=== PATIENT | female | born 2000 | race Caucasian/White ===

== ENCOUNTER 2020-02-13 17:55 | Emergency (ER) | payer SELFPAY ==
[~2020-02-13] VITALS: Ht 162.6 cm; Wt 115.9 kg
[2020-02-13 18:09] VITALS: TEMP 98.4
[2020-02-13 18:33] LABS: BASO % 0.4 % (0.0-2.0); EOS # 0.2 (0.0-0.7); EOS % 2.6 % (0-4.0); GRAN # 4.1 (1.4-6.5); HEMATOCRIT 42.3 % (35.0-45.0); HEMOGLOBIN 14.4 g/dl (12.0-15.0); LYMPH # 2.6 (1.2-3.4); LYMPH % 33.4 % (20.0-51.0); MEAN CELL VOLUME 81 fl (80.0-95.0); MEAN CORPUSCULAR HEMOGLOBIN 27 pg (26.0-32.0); MEAN CORPUSCULAR HGB CONC 34 g/dl (33.0-37.0); MEAN PLATELET VOLUME 9.3 fl (7.4-10.4); MONO # 0.8 (0.1-0.6); MONO % 10.3 % (1.7-9.3); PLATELET COUNT 276 K/mm3 (130-400); RED BLOOD COUNT 5.25 M/mm3 (4.10-5.30); REDCELL DISTRIBUTION WIDTH-CV 12.1 % (11.5-14.5)
[2020-02-13 18:46] LABS: ALBUMIN 4.3 gm/dL (3.5-5.0); BILIRUBIN,TOTAL 0.5 mg/dL (0.0-1.0); C-REACTIVE PROTEIN 3.4 mg/dL (0.0-0.9); CALCIUM 9.5 mg/dL (8.4-10.2); CREATININE, serum 0.69 (0.52-1.25); POTASSIUM 3.8 mmol/L (3.4-5.0)
[2020-02-13] MEDS ORDERED: PREDNISONE10 MG PO (20:27)
[2020-02-13] MEDS ORDERED: CLEOCIN HCL300 MG PO (20:27)
[2020-02-13 21:18] VITALS: BP 120/60; PULSE 88
== END 2020-02-13 21:18 | disposition home or self-care (01) ==
LOC: COL.ER 17:55
PROVIDERS: Nurse Practitioner
DX: J35.1 Hypertrophy of tonsils (principal)
CPT/HCPCS: J1100; J1170; J1885; J2405; J7030

== ENCOUNTER 2020-08-24 19:43 | Emergency (ER) | payer OTHER ==
[~2020-08-24] VITALS: Ht 162.6 cm; Wt 104.5 kg
[~2020-08-24 19:43] MED LIST: CLEOCIN HCL300 MG PO; PREDNISONE10 MG PO
[2020-08-24 20:03] VITALS: TEMP 97.6
[2020-08-24 20:56] LABS: ALBUMIN 4.5 gm/dL (3.5-5.0); BILIRUBIN,TOTAL 0.2 mg/dL (0.0-1.0); CALCIUM 9.7 mg/dL (8.4-10.2); CREATININE, serum 0.67 (0.52-1.25); POTASSIUM 3.8 mmol/L (3.4-5.0); TOTAL PROTEIN 8.9 gm/dL (6.4-8.2)
[2020-08-24 20:59] LABS: BASO % 0.4 % (0.0-2.0); EOS # 0.2 (0.0-0.7); EOS % 1.8 % (0-4.0); GRAN # 6.9 (1.4-6.5); GRAN % 66.5 % (42.2-75.2); HEMOGLOBIN 14.2 g/dl (12.0-15.0); LYMPH # 2.6 (1.2-3.4); LYMPH % 24.6 % (20.0-51.0); MEAN CELL VOLUME 83 fl (80.0-95.0); MEAN CORPUSCULAR HEMOGLOBIN 28 pg (26.0-32.0); MEAN CORPUSCULAR HGB CONC 33 g/dl (33.0-37.0); MEAN PLATELET VOLUME 10.3 fl (7.4-10.4); MONO # 0.7 (0.1-0.6); MONO % 6.4 % (1.7-9.3); PLATELET COUNT 308 K/mm3 (130-400); RED BLOOD COUNT 5.17 M/mm3 (4.10-5.30); REDCELL DISTRIBUTION WIDTH-CV 13.1 % (11.5-14.5)
[2020-08-24] MEDS ORDERED: ZOFRAN ODT4 MG PO (21:48)
[2020-08-24] MEDS ORDERED: NORCO 325 MG-51 TAB PO (21:48)
[2020-08-24 22:10] VITALS: BP 127/74; PULSE 94
== END 2020-08-24 22:10 | disposition home or self-care (01) ==
LOC: COL.ER 19:43
PROVIDERS: Emergency Medicine
DX: R10.11 Right upper quadrant pain (principal); R11.2 Nausea with vomiting, unspecified; R55 Syncope and collapse; Z79.52 Long term (current) use of systemic steroids
CPT/HCPCS: J2270; J2405; J7030

== ENCOUNTER 2020-08-26 21:17 | Emergency (ER) | payer OTHER ==
[~2020-08-26] VITALS: Ht 162.6 cm; Wt 104.5 kg
[~2020-08-26 21:17] MED LIST changes: +NORCO 325 MG-51 TAB PO; +ZOFRAN ODT4 MG PO
[2020-08-26 22:10] LABS: COLLECTION METHOD CLEAN CATCH
[2020-08-26 22:13] LABS: BASO % 0.5 % (0.0-2.0); EOS # 0.2 (0.0-0.7); EOS % 3.2 % (0-4.0); GRAN # 3.1 (1.4-6.5); GRAN % 50.9 % (42.2-75.2); HEMATOCRIT 39.2 % (35.0-45.0); LYMPH # 2.3 (1.2-3.4); LYMPH % 37.6 % (20.0-51.0); MEAN CELL VOLUME 83 fl (80.0-95.0); MEAN CORPUSCULAR HEMOGLOBIN 28 pg (26.0-32.0); MEAN CORPUSCULAR HGB CONC 33 g/dl (33.0-37.0); MEAN PLATELET VOLUME 9.9 fl (7.4-10.4); MONO # 0.5 (0.1-0.6); MONO % 7.6 % (1.7-9.3); PLATELET COUNT 279 K/mm3 (130-400); RED BLOOD COUNT 4.72 M/mm3 (4.10-5.30); REDCELL DISTRIBUTION WIDTH-CV 12.8 % (11.5-14.5)
[2020-08-26 22:21] LABS: MUCOUS Present /lpf; PH 7 (5-8); URINE APPEARANCE Cloudy; URINE BACTERIA Moderate /hpf; URINE BILIRUBIN Negative (NEGATIVE); URINE BLOOD Negative (NEGATIVE); URINE COLOR Yellow; URINE GLUCOSE Negative (NEGATIVE); URINE KETONE Negative (NEGATIVE); URINE LEUKOCYTE ESTERASE Trace (NEGATIVE); URINE NITRATE Negative (NEGATIVE); URINE PROTEIN(semi-quant) Negative (NEGATIVE); URINE RBC 0-2 /hpf; URINE UROBILINOGEN Negative (NEGATIVE)
[2020-08-26 22:26] LABS: ALBUMIN 3.9 gm/dL (3.5-5.0); BILIRUBIN,TOTAL 0.1 mg/dL (0.0-1.0); C-REACTIVE PROTEIN 2.3 mg/dL (0.0-0.9); CALCIUM 9.1 mg/dL (8.4-10.2); CREATININE, serum 0.69 (0.52-1.25); POTASSIUM 3.5 mmol/L (3.4-5.0); TOTAL PROTEIN 7.5 gm/dL (6.4-8.2)
[2020-08-27] MEDS ORDERED: BENTYL 20MG20 MG/TAB PO (00:28)
[2020-08-27 00:45] VITALS: BP 123/60; PULSE 88; TEMP 98.7
== END 2020-08-27 01:06 | disposition home or self-care (01) ==
LOC: COL.ER 21:17
PROVIDERS: Physician Assistant
DX: R10.11 Right upper quadrant pain (principal); Z32.02 Encounter for pregnancy test, result negative; Z79.52 Long term (current) use of systemic steroids
CPT/HCPCS: J0500; J1170; J1885; J2405; J2550; J7030

== ENCOUNTER 2020-09-14 10:30 | Day surgery (SDC) | payer SELFPAY ==
[~2020-09-14] VITALS: Ht 162.6 cm; Wt 122.3 kg
[2020-09-14] VITALS (8 sets, daily range): BP systolic 104–138; BP diastolic 60–89; PULSE 70–88; TEMP 98.7–98.8
[~2020-09-14 10:30] MED LIST changes: +BENTYL 20MG20 MG/TAB PO
[2020-09-14] MEDS ORDERED: ELURYNG VAGINA1 EACH VG (11:41)
--- NOTE | 2020-09-14 11:50 | NUR ---
Patient complains of nausea and medicated with Zofran 4mg IV after order obtained from Jayson Gavin CRNA.
[2020-09-14] MEDS ORDERED: NORCO 325 MG-51 TAB PO (12:46)
[2020-09-14] MEDS ORDERED: MOTRIN 600600 MG/TAB PO (12:47)
--- NOTE | 2020-09-14 17:45 | NUR ---
1515 Pt transferred from PACU to [place] [id number] via cart. Monitors on and alarms set. Call light within reach. Mom present in room. Lights turned down, and pt allowed to rest calmly. Pt alert and oriented. Pt denies nausea. Pt has some pain in RUQ and LUQ, but pain is tolerable. Report received from MIKE Gonzales. 1530 Pt continues to rest without complications. 1545 Pt resting calmly. 1600 Mom states that pt is wanting to be repositioned. Pt assists with repositioning with some discomfort. This RN explains pain that would be too much and pain that would be expected post-surgery. After repositioning, pt feels better. 1630 Pt given water to drink, and she takes small amounts without complication. 1700 Discharge instructions reviewed in detail answering all questions to their satisfaction. 1725 Pt assisted to sitting position, then standing, then ambulates with RN assist to restroom as pt states, "I need to use the bathroom." Mom remains in restroom with pt. 1735 Pt returns to [facility] dressed and ready to go. 1744 Pt transferred via wheelchair to private vehicle driven by family member.
== END 2020-09-14 17:44 | disposition home or self-care (01) ==
LOC: SDCO 10:30
DX: K80.44 Calculus of bile duct with chronic cholecystitis without obstruction (principal); E66.9 Obesity, unspecified; Z68.41 Body mass index [BMI] 40.0-44.9, adult
CPT/HCPCS: J0690; J1100; J1885; J2175; J2405; J2550; J2704; J3010; J7120

== ENCOUNTER 2021-02-26 17:48 | Emergency (ER) | payer SELFPAY ==
[~2021-02-26] VITALS: Ht 162.6 cm; Wt 127.3 kg
[~2021-02-26 17:48] MED LIST changes: +ELURYNG VAGINA1 EACH VG; +MOTRIN 600600 MG/TAB PO
[2021-02-26 18:39] VITALS: TEMP 98.5
[2021-02-26 20:00] LABS: BASO # 0.1 K/mm3 (0.0-0.2); BASO % 0.7 % (0.0-2.0); EOS # 0.3 K/mm3 (0.0-0.7); EOS % 3.5 % (0-4.0); GRAN # 3.7 K/mm3 (1.4-6.5); GRAN % 52.6 % (42.2-75.2); HEMATOCRIT 44.5 % (35.0-45.0); LYMPH # 2.3 K/mm3 (1.2-3.4); MEAN CELL VOLUME 82 fl (80.0-95.0); MEAN CORPUSCULAR HEMOGLOBIN 28 pg (26.0-32.0); MEAN CORPUSCULAR HGB CONC 34 g/dl (33.0-37.0); MONO # 0.7 K/mm3 (0.1-0.6); MONO % 10.1 % (1.7-9.3); PLATELET COUNT 275 K/mm3 (130-400); RED BLOOD COUNT 5.41 M/mm3 (4.10-5.30); REDCELL DISTRIBUTION WIDTH-CV 12.9 % (11.5-14.5)
[2021-02-26 20:14] LABS: ALBUMIN 4.3 gm/dL (3.5-5.0); BILIRUBIN,TOTAL 0.5 mg/dL (0.2-1.2); CALCIUM 10.1 mg/dL (8.4-10.2); CREATININE, serum 0.83 mg/dL (0.57-1.11); TOTAL PROTEIN 7.9 gm/dL (6.2-8.1)
[2021-02-26 21:32] VITALS: BP 133/69; PULSE 69
== END 2021-02-26 21:32 | disposition home or self-care (01) ==
LOC: COL.ER 17:48
PROVIDERS: Nurse Practitioner
DX: J06.9 Acute upper respiratory infection, unspecified (principal); Z20.822 Contact with and (suspected) exposure to COVID-19
CPT/HCPCS: J1885; J7030

== ENCOUNTER 2021-06-14 12:25 | Outpatient (RCR) | payer BC | END 2021-07-09 | disposition home or self-care (01) | LOC: WSPT | DX: M25.511 Pain in right shoulder (principal); E03.9 Hypothyroidism, unspecified; R06.00 Dyspnea, unspecified; Z86.16 Personal history of COVID-19 | CPT/HCPCS: G0283-GP ==

== ENCOUNTER 2021-08-02 08:30 | Outpatient (RCR) | payer BC | END 2021-08-09 | disposition home or self-care (01) | LOC: WSPT | DX: M75.41 Impingement syndrome of right shoulder (principal) ==

== ENCOUNTER 2021-09-08 14:06 | Emergency (ER) | payer SELFPAY ==
[~2021-09-08] VITALS: Ht 162.6 cm; Wt 120.5 kg
[2021-09-08 16:17] LABS: COLLECTION METHOD CLEAN CATCH
[2021-09-08 16:23] LABS: BASO % 0.3 % (0.0-2.0); EOS # 0.2 K/mm3 (0.0-0.7); GRAN # 8.2 K/mm3 (1.4-6.5); GRAN % 70.5 % (42.2-75.2); HEMATOCRIT 42.1 % (37.0-47.0); LYMPH # 2.3 K/mm3 (1.2-3.4); LYMPH % 19.9 % (20.0-51.0); MEAN CELL VOLUME 85 fl (80.0-100.0); MEAN CORPUSCULAR HEMOGLOBIN 28 pg (27-31); MEAN CORPUSCULAR HGB CONC 33 g/dl (33.0-37.0); MONO # 0.8 K/mm3 (0.1-0.6); PLATELET COUNT 315 K/mm3 (130-400); RED BLOOD COUNT 4.94 M/mm3 (4.10-5.30)
[2021-09-08 16:29] LABS: MUCOUS Present (NOT PRESENT); PH 6 (5-8); URINE APPEARANCE Hazy (CLEAR/HAZY); URINE BACTERIA Rare /hpf (NONE SEEN); URINE BILIRUBIN Negative (NEGATIVE); URINE BLOOD 1+ (NEGATIVE); URINE COLOR Yellow (YELLOW); URINE GLUCOSE Negative (NEGATIVE); URINE KETONE Negative (NEGATIVE); URINE LEUKOCYTE ESTERASE 3+ (NEGATIVE); URINE NITRATE Negative (NEGATIVE); URINE PROTEIN(semi-quant) Negative (NEGATIVE); URINE UROBILINOGEN Negative (NEGATIVE)
[2021-09-08 16:39] LABS: ALBUMIN 4.2 gm/dL (3.5-5.0); BILIRUBIN,TOTAL 0.3 mg/dL (0.2-1.2); CALCIUM 9.5 mg/dL (8.4-10.2); CREATININE, serum 0.79 mg/dL (0.57-1.11); POTASSIUM 3.9 mmol/L (3.5-4.5); TOTAL PROTEIN 7.6 gm/dL (6.2-8.1)
[2021-09-08] MEDS ORDERED: CEPHALEXIN500 M1 PO (16:55)
[2021-09-08] MEDS ORDERED: ZOFRAN ODT4 MG PO (16:55)
[2021-09-08] MEDS ORDERED: BENTYL 20MG20 MG/TAB PO (16:55)
[2021-09-08 17:24] VITALS: BP 126/78; PULSE 105; TEMP 97.5
== END 2021-09-08 17:26 | disposition home or self-care (01) ==
LOC: COL.ER 14:06
PROVIDERS: Emergency Medicine
DX: N39.0 Urinary tract infection, site not specified (principal)
CPT/HCPCS: J1885; J2405; J7030

== ENCOUNTER 2022-10-09 23:36 | Emergency (ER) | payer OTHER ==
[~2022-10-09] VITALS: Ht 162.6 cm; Wt 131.8 kg
[~2022-10-09 23:36] MED LIST changes: +CEPHALEXIN500 M1 PO
[2022-10-09] MEDS ORDERED: GLUCOPHAGE500 MG/TAB PO (23:43)
[2022-10-09 23:44] VITALS: TEMP 98
[2022-10-10 00:16] LABS: BASO # 0.1 K/mm3 (0.0-0.2); BASO % 0.6 % (0.0-2.0); EOS # 0.3 K/mm3 (0.0-0.7); EOS % 3.1 % (0.0-4.0); GRAN # 4.5 K/mm3 (1.4-6.5); GRAN % 50.1 % (42.2-75.2); HEMOGLOBIN 13.6 g/dl (12.5-16.0); LYMPH # 3.4 K/mm3 (1.2-3.4); LYMPH % 38.1 % (20.0-51.0); MEAN CELL VOLUME 85 fl (80.0-100.0); MEAN CORPUSCULAR HEMOGLOBIN 28 pg (27-31); MEAN CORPUSCULAR HGB CONC 33 g/dl (33.0-37.0); MONO # 0.7 K/mm3 (0.1-0.6); MONO % 7.7 % (1.7-9.3); PLATELET COUNT 293 K/mm3 (130-400); RED BLOOD COUNT 4.81 M/mm3 (4.10-5.30); REDCELL DISTRIBUTION WIDTH-CV 12.3 % (11.5-14.5)
[2022-10-10 00:51] LABS: COLLECTION METHOD CLEAN CATCH
[2022-10-10 00:58] LABS: MUCOUS Present (NOT PRESENT); SQUAMOUS EPITHELIAL 0-2 /hpf (0-10); URINE BACTERIA None Seen /hpf (NONE SEEN)
[2022-10-10 01:00] LABS: URINE APPEARANCE Clear (CLEAR/HAZY); URINE COLOR Yellow (YELLOW); URINE GLUCOSE Negative (NEGATIVE); URINE KETONE Negative (NEGATIVE); URINE PROTEIN(semi-quant) Negative (NEGATIVE); URINE UROBILINOGEN 0.2 E.U/dL (0.2-1.0)
[2022-10-10 01:01] LABS: URINE BLOOD 2+ (NEGATIVE); URINE NITRATE Negative (NEGATIVE)
[2022-10-10 01:13] LABS: ALBUMIN 4.2 gm/dL (3.5-5.0); BILIRUBIN,TOTAL 0.4 mg/dL (0.2-1.2); CALCIUM 9.5 mg/dL (8.4-10.2); CREATININE, serum 0.8 mg/dL (0.57-1.11); POTASSIUM 3.8 mmol/L (3.5-4.5); TOTAL PROTEIN 7.8 gm/dL (6.2-8.1)
[2022-10-10 01:44] VITALS: BP 154/70; PULSE 65
== END 2022-10-10 01:45 | disposition home or self-care (01) ==
LOC: COL.ER 23:36
PROVIDERS: Emergency Medicine
DX: E28.2 Polycystic ovarian syndrome (principal); N94.6 Dysmenorrhea, unspecified; E66.9 Obesity, unspecified; F17.210 Nicotine dependence, cigarettes, uncomplicated; Z68.42 Body mass index [BMI] 45.0-49.9, adult
CPT/HCPCS: J1885; J2405; J7030